=== PATIENT | male | born 1965 | race African-American/Black ===

== ENCOUNTER 2017-09-15 03:40 | Emergency (ER) | payer MEDICAID, OTHER ==
[~2017-09-15] VITALS: Ht 177.8 cm; Wt 72.6 kg
--- NOTE | 2017-09-15 03:47 | NUR ---
pt bibra s/p falling in shower. pt states that he injured his left foot and is c/o left ankle pain. vs stable. pt in bed being seen by md at bedside.
--- NOTE | 2017-09-15 04:22 | NUR ---
xr for left foot injry being taken at bedside
--- NOTE | 2017-09-15 06:42 | NUR ---
Patient discharged to home in stable condition. Written and verbal after care instructions given. Patient verbalizes understanding of instruction. pt called for [employer]ft to pick him up and take him home. pt was safely transported via wheelchair to outside to the [employer] car.
[2017-09-15 06:44] VITALS: BP 145/87
== END 2017-09-15 06:45 | disposition home or self-care (01) ==
LOC: EDBD 03:42 → ER 03:42
DX: S93.492A Sprain of other ligament of left ankle, initial encounter (principal); S90.32XA Contusion of left foot, initial encounter; W01.0XXA Fall on same level from slipping, tripping and stumbling without subsequent striking against object, initial encounter; Y93.E1 Activity, personal bathing and showering; Y92.89 Other specified places as the place of occurrence of the external cause; Y99.8 Other external cause status
CPT/HCPCS: 73610; 73630; 99284; A4606; Z7610

== ENCOUNTER 2017-09-17 15:41 | Emergency (ER) | payer MEDICAID ==
[~2017-09-17] VITALS: Ht 182.9 cm; Wt 81.7 kg
[2017-09-17] MEDS ORDERED: INSULIN REGULAR, HUMAN 100 UNIT/ML 10 ML VIAL IV ONE (16:00)
[2017-09-17] MEDS ORDERED: IV NS 0.9% 1,000 ML BAG IV ONE ×2 (16:00)
--- NOTE | 2017-09-17 16:00 | NUR ---
BIB RA C/O WEAKNESS AND HIGH BLOOD SUGAR. VSS. SEEN BY FOR EVAL. SAFETY AND COMFORT MEASURES PROVIDED. WILL MONITOR.
[2017-09-17] MEDS ORDERED: INSULIN REGULAR, HUMAN 100 UNIT/ML 10 ML VIAL ONE (16:07)
[2017-09-17 16:11] LABS: BASOPHILS # (AUTO) 0.3 /CMM (0.0-0.2); BASOPHILS % (AUTO) 2.7 % (0.0-2.0); EOSINOPHILS % (AUTO) 0.9 % (0.0-6.0); HEMATOCRIT 38 % (39-51); HEMOGLOBIN 12.9 g/dL (13.5-17.5); LYMPHOCYTES # (AUTO) 1.3 /CMM (0.8-4.8); LYMPHOCYTES % (AUTO) 13.5 % (20.0-44.0); MEAN CORPUSCULAR HEMOGLOBIN 31 PG (26.0-33.0); MEAN CORPUSCULAR HGB CONC 34 g/dl (31.0-36.0); MEAN CORPUSCULAR VOLUME 93 fL (80-96); MONOCYTES # (AUTO) 0.8 /CMM (0.1-1.30); MONOCYTES % (AUTO) 8.4 % (2.0-12.0); NEUTROPHILS # (AUTO) 7.3 /CMM (1.8-8.9); NEUTROPHILS % (AUTO) 74.5 % (43.0-81.0); PLATELET COUNT (AUTO) 261 /CMM (150-450); RDW COEFFICIENT OF VARIATION 13.4 (11.5-15.0); RED BLOOD CELL COUNT(AUTO) 4.11 MIL/uL (4.5-6.0); WHITE BLOOD COUNT (AUTO) 9.8 K/uL (4.3-11.0)
[2017-09-17 16:23] LABS: CALCIUM, SERUM 9.1 mg/dL (8.5-10.1); CREATININE 1.9 mg/dL (0.6-1.3); POTASSIUM 3.7 mmol/L (3.5-5.1)
--- NOTE | 2017-09-17 16:40 | NUR ---
IV ACCESS STARTED, BLOOD DRAWN FOR LABS. MEDICATED ORDERED.
[2017-09-17] MEDS ORDERED: ARIP20TA4 PO (16:43)
[2017-09-17] MEDS ORDERED: INSU100V7 SQ (16:43)
[2017-09-17] MEDS ORDERED: INSU100V27 SQ (16:43)
[2017-09-17] MEDS ORDERED: AMIT100T2 PO (16:43)
[2017-09-17] MEDS ORDERED: LISI-603 PO (16:43)
[2017-09-17] MEDS ORDERED: ZOLP12.52 PO (16:43)
[2017-09-17] MEDS ORDERED: AMLO2.5T PO (16:43)
[2017-09-17 17:33] LABS: ABG BASE EXCESS -6.4 mmol/L; ABG OXYGEN SATURATION 42.7 % (92.0-98.5); ABG PCO2 42.4 mmHg (35.0-45.0); ABG PH 7.289 (7.350-7.450); ABG PO2 25.7 mmHg (75.0-100.0); COHb 0.8 % (0.5-1.5); MetHb 0.3 % (0.0-1.5); O2Hb 42.2 % (94.0-97.0); SITE, ABG LEFT ARM; VENT MODE, BG room air
--- NOTE | 2017-09-17 19:00 | NUR ---
PROVIDED PT WITH FOOD AND DRINKS REQUESTED.
--- NOTE | 2017-09-17 19:22 | NUR ---
Patient discharged to home in stable condition. Written and verbal after care instructions given. Patient verbalizes understanding of instruction.
--- NOTE | 2017-09-17 19:22 | NUR ---
IV removed. Catheter intact and site benign. Pressure and 4x4 applied to site. No bleeding noted.
[2017-09-17 19:26] VITALS: BP 108/75
== END 2017-09-17 19:26 | disposition home or self-care (01) ==
LOC: ER 15:46
DX: E11.65 Type 2 diabetes mellitus with hyperglycemia (principal); N28.9 Disorder of kidney and ureter, unspecified; Z79.4 Long term (current) use of insulin; I10 Essential (primary) hypertension
CPT/HCPCS: 36415; 36600; 80048; 82803; 82962 ×2; 85025; 96361; 96374; 99284; A4606; J1815; J7030; Z7610